=== PATIENT | female | born 1950 | race Caucasian/White ===

== ENCOUNTER 2020-12-20 13:48 | Outpatient (CLI) | payer MEDICARE, SELFPAY ==
--- NOTE | ~2020-12-20 | CT_ITS ---
EXAMINATION: CT knee LT wo con DATE: 12/20/2020 14:23 INDICATION: Left knee osteoarthritis. TECHNIQUE: High resolution computed tomography (CT) of the knee was performed without intravenous con trast. Additional sagittal and coronal reconstructions were performed. Automated exposure control and iterative reconstruction technique were employed. The dose-length product was 668.52 mGy-cm. COMPARISON: Radiograph dated 04/27/2019 FINDINGS: No fracture. Severe joint space narrowing at the medial and lateral compartments of the left knee wit h subarticular cystic changes along portions of the tibial plateau most prominent at the anteromedial aspect of the lateral tibial plateau and along the rim of the medial tibial plateau. A few millimete r of lateral subluxation of the tibial plateau relative to the femoral condyles. Additional mild suba rticular cystic changes along the posterior weightbearing lateral femoral condyle. There is at least mild joint space narrowing in the patellofemoral compartment. Deep chondral ulceration is seen along the patellar apical ridge. Moderate-sized marginal osteophytes are present in all 3 compartments. The re are scattered chondrocalcinosis including along the extruded medial and lateral menisci. Moderate-sized left knee joint effusion with fluid surrounding a couple loose osteochondral bodies in the suprapatellar pouch. Additional loose osteochondral bodies are seen within a moderate-sized Bake r cyst at the medial aspect of the left popliteal fossa. The thickened distal patellar tendon extends towards a concavity with irregular cortical margin along the anteromedial proximal tibia medial to t he expected location of the anterior tibial tuberosity suggesting postoperative change related to ofelia or patellar tendon relocation procedure. Correlate with surgical history. IMPRESSION: 1. Severe medial and lateral compartment predominant tricompartmental osteoarthritis at the left knee . Reviewed, dictated and finalized at location A. IMPRESSION: 1. Severe medial and lateral compartment predominant tricompartmental osteoarth ritis at the left knee.
== END 2020-12-20 13:49 | disposition home or self-care (01) ==
PROVIDERS: PCP Physician Assistant; Visit Provider Orthopaedic Surgery
DX: M17.12 Unilateral primary osteoarthritis, left knee (principal)
CPT/HCPCS: 73700

== ENCOUNTER 2020-12-25 09:49 | Outpatient (CLI) | payer MEDICARE, SELFPAY ==
--- NOTE | 2020-12-25 10:34 | ECG_ITS ---
Measurements Intervals [place] Rate: 65 P: 56 SC: 153 QRS: 26 QRSD: 86 T: 58 QT: 382 QTc: 397 Interpretive Statements SINUS RHYTHM BASELINE ARTIFACT- II, III, AVF NORMAL ECG Electronically Signed On 12-25-2020 11:10:04 CDT by Abrahan Cordero D.O.
[2020-12-25 10:57] LABS: Albumin Level 4.3 g/dL (3.5-5.1); Estimated Glomerular Filt Rate 49
== END 2020-12-25 09:50 | disposition home or self-care (01) ==
PROVIDERS: PCP Physician Assistant; Visit Provider Orthopaedic Surgery
DX: Z01.818 Encounter for other preprocedural examination (principal); M17.12 Unilateral primary osteoarthritis, left knee
CPT/HCPCS: 36415; 82040; 82565; 93005

== ENCOUNTER 2021-03-03 07:41 | Outpatient (CLI) | payer MEDICARE, SELFPAY ==
[2021-03-03 09:01] LABS: Basophils Absolute Auto 0.1 K/mm3 (0.0-0.1); Basophils Percent Auto 1.2 % (0.2-1.2); Eosinophils Absolute Auto 0.2 K/mm3 (0-0.3); Hematocrit 45.5 % (37.0-47.0); Hemoglobin 14.6 g/dL (12.0-15.0); Immature Granulocyte Absolute 0.02 K/mm3 (0.00-0.031); Immature Granulocyte Percent A 0.3 % (0-0.5); Lymphocytes Absolute Auto 1.88 K/mm3 (0.9-3.2); Lymphocytes Percent Auto 29.2 % (18.3-44.2); Mean Corpuscular HGB Conc 32.1 g/dl (32-36); Mean Corpuscular Hemoglobin 28.3 pg (26-34); Mean Corpuscular Volume 88.3 fl (80-100); Mean Platelet Volume 9.4 fl (7.4-10.4); Monocytes Absolute Auto 0.5 K/mm3 (0.1-0.6); Monocytes Percent Auto 7.9 % (2.6-8.5); Neutrophils Absolute Auto 3.8 K/mm3 (1.3-6.7); Neutrophils Percent Auto 58.4 % (45.5-73.1); Platelet Count Result 343 k/mm3 (150-375); Red Blood Count 5.15 M/mm3 (4.2-5.4); Red Cell Distribution Width 12.6 % (11.5-14.5); White Blood Count 6.4 K/mm3 (4.5-10.0)
[2021-03-03 09:08] LABS: Albumin Level 4.7 g/dL (3.5-5.1)
[2021-03-03 09:10] LABS: Anion Gap 9 mmol/L (8-16); Blood Urea Nitrogen 21 mg/dL (7-17); Calcium 10.5 mg/dL (8.4-10.2); Carbon Dioxide 29 mmol/L (22-30); Chloride 102 mmol/L (98-107); Estimated Glomerular Filt Rate 45; Glucose 108 mg/dL (65-105); Sodium 140 mmol/L (137-145)
[2021-03-03 09:12] LABS: Urine Cotinine NEGATIVE
[2021-03-03 09:18] LABS: Hemoglobin A1C 5.8 % (<5.7)
== END 2021-03-03 07:42 | disposition home or self-care (01) ==
PROVIDERS: Anesthesiology; PCP Physician Assistant; Visit Provider Orthopaedic Surgery
DX: M17.12 Unilateral primary osteoarthritis, left knee (principal); Z79.899 Other long term (current) drug therapy; Z01.818 Encounter for other preprocedural examination
CPT/HCPCS: 36415; 80048; 80307; 82040; 83036; 85025; 87081

== ENCOUNTER 2021-03-18 01:02 | Day surgery (SDC) | payer MEDICARE, SELFPAY ==
[2021-03-03 07:48] VITALS: BP 156/88; PULSE 66; RESP 18; TEMP 36.9; O2SAT 99
[2021-03-03 08:21] VITALS: BMI 25.8
[2021-03-18] VITALS (19 sets, daily range): BP systolic 104–159; BP diastolic 64–89; PULSE 63–105; RESP 14–20; TEMP 36–36.9; O2SAT 94–100
--- NOTE | ~2021-03-18 | XR_ITS ---
EXAMINATION: XR knee LT 2V DATE: 03/18/2021 10:50 INDICATION: Total left knee arthroplasty. Postop. TECHNIQUE: 2 views of left knee were obtained. COMPARISON: Left knee radiographs 04/27/2019 FINDINGS: There is a total left knee arthroplasty in near-anatomic alignment with patellar resurfacin g. No fracture. There is gas in the knee joint and soft tissues, consistent with recent surgery. IMPRESSION: 1. Total left knee arthroplasty in near-anatomic alignment. Reviewed, dictated and finalized at location A.
--- NOTE | 2021-03-18 06:30 | WPDANESEPPF ---
Anes - Initial Pre Proc Eval Procedure: Operation Date: 03/18/21 07:30 Proposed Procedures p Left Custom Total Knee Arthroplasty - Eliceo Ferreira MD Date/Time: 03/18/21 06:30 Surgeon: Eliceo Ferreira MD Pre Op Diagnosis: primary OA Left Knee Patient Data Age: 71 Gender: F Height: 1.68 m Weight: 71.6 kg Last Vital Signs Temp 36.9 C 03/03/21 07:48 Pulse 66 03/03/21 07:48 Resp 18 03/03/21 07:48 BP 156/88 H 03/03/21 07:48 Pulse Ox 99 03/03/21 07:48 Allergies Allergy/AdvReac Type Severity Reaction Status Date / Time cephalexin Allergy Unknown Rash Verified 03/14/21 08:10 Home Medications Medication Instructions Recorded Confirmed Type amlodipine 5 mg tablet 5 mg PO QAM 12/02/20 03/03/21 History aspirin 81 mg tablet,delayed 81 mg PO QAM 12/02/20 03/03/21 History release atorvastatin 10 mg tablet 10 mg PO QAM 12/02/20 03/03/21 History cholecalciferol (vitamin D3) 25 25 mcg PO QAM 12/02/20 03/03/21 History mcg (1,000 unit) capsule hydrochlorothiazide 12.5 mg capsule 12.5 mg PO QAM 12/02/20 03/03/21 History losartan 25 mg tablet 25 mg PO QAM 12/02/20 03/03/21 History calcium carbonate-vitamin D3 1 tablet PO QAM 03/03/21 03/03/21 History [Caltrate with Vitamin D3] cyanocobalamin (vitamin B-12) 1,000 mcg PO QAM 03/03/21 03/03/21 History Patient hx anesthesia problems: post op nausea/vomiting (mild - zofran resolved past issues) Family hx anesthesia problems: none PMFSH Past Medical History Medical History (Updated 03/18/21 @ 06:30 by Anibal Fernández DO) Bilateral primary osteoarthritis of knee Hyperlipidemia Hypertension Lumbar radiculitis Primary osteoarthritis of left knee Trochanteric bursitis, left hip Surgical History Surgical History History of x4 - 1974, 1977, 1979, 1982 History of knee surgery (~1970) History of mastectomy (~2001) History of mastectomy (~2006) History of total replacement of left shoulder joint (~10/11/18) Anatomic Family History Family History Other Carcinoma of colon Family history of arthritis Hypertension Social History Social History Smoking status: Never smoker Second hand tobacco smoke exposure: No Alcohol intake: never Substance use: never Substance use type: does not use Living arrangements: with family Spiritual care concerns: No Anes - Eval Final PreProcedure Day of Procedure 03/18/21 06:30 Patient weight: overweight Heart: regular rate and rhythm Lungs: clear to auscultation and normal air movement Airway: Mallampati scale class II Neurological: alert and oriented Last oral intake: >/= 8 hours ASA classification: II Emergent: no Anesthetic plan: proceed Anesthesia type and monitoring: general LMA and standard monitoring Informed Consent: The patient's anesthetic plan and its attendant risks and benefits were discussed with the patient/family/POA. Questions were solicited and answers provided to the satisfaction of the patient/family/POA.
[2021-03-18] MEDS: TRANEXAMIC ACID 1,000MG/ISO100 1,000 MG/100 ML BAG 200 MG IVPB (06:46)
[2021-03-18] MEDS: ACETAMINOPHEN 500 MG TABLET 1000 MG PO (06:48)
[2021-03-18] MEDS: LACTATED RINGERS 1,000 ML 30 ML IV CONT ×2 (06:48→10:35)
[2021-03-18] MEDS: ONDANSETRON INJ 4 MG/2 ML VIAL IV PUSH (07:00)
--- NOTE | 2021-03-18 07:22 | WPDHPUPDATE1 ---
History and Physical Update Update Date/Time: 03/18/21 07:22 History and Physical has been reviewed, including an updated exam of the patient. There are NO changes in the patient's condition. Risks, benefits, and alternatives have been discussed and questions answered. Patient agrees to proceed with procedure.
--- NOTE | 2021-03-18 07:30 | WPDANESPNB ---
Anes - Peripheral Nerve Block Date/Time: 03/18/21 07:30 I have discussed with the patient/family/POA the placement of a peripheral nerve block for post-operative pain management, including associated risks, benefits, complications, and side effects. Alternative methods of post-operative analgesia were detailed. Questions were solicited and answers provided to the satisfaction of the patient/family/POA. Time-Out: A pre-procedural Time-Out was completed immediately before starting the procedure and confirmed: Patient Identification, Site, Procedure, Patient Position and the Availability of Requisite Equipment. Clinical Indications: Acute post-operative pain management requested by the operative surgeon. Nerve Block Insertion Note Anes-nerve block: adductor canal left Patient position: supine Skin prep: chlorhexidine Needle: 22 gauge, stimulating, insulated echogenic needle. Needle length: 80 mm Technique: ultrasound Injectate: bupivacaine 0.5% with epi 5 mcg/ml (30cc - no epi) Observations: tolerated well Complications: none Procedure start time:: 723 Procedure end time:: 726
[2021-03-18] MEDS: SCOPOLAMINE 1.5 MG PATCH TRANSDERM (11:17)
[2021-03-18] MEDS: diphenhydrAMINE HCl INJ 50 MG/ML VIAL 12.5 MG IV PUSH ×2 (11:17→11:42)
--- NOTE | 2021-03-18 11:25 | SUR.PHASEI ---
1115- Patient with n/v and notified Dr. Fernández of episode of emesis. Orders obtained for scopolamine patch 1.5MG and IVP benadryl 12.5MG with max dose of 25MG IVP if needed for persistent n/v.
[2021-03-18] MEDS: HALOPERIDOL LACTATE 5 MG/ML VIAL 1 MG IV PUSH (12:17)
--- NOTE | 2021-03-18 12:21 | SUR.PHASEI ---
1215-Patient complaining nausea has returned at this time and requesting medication prior to transfer to room 244. Obtained orders for 1MG haldol IVP once from Dr. Fernández at this time.
--- NOTE | 2021-03-18 12:49 | ADMGEN ---
This patient, Birgit Burris, was admitted to Medical Room 244-. Patient/family oriented to hospital policies and general routines including ID bracelet, bed and alarms, visiting hours, pain management, procedures, bathroom and other care routines, personal items, smoking policy, room service/diet, and visiting hours. Information on how to activate the Rapid Response Team has been discussed. Patient/Family are encouraged to report perceived risks to care and to ask questions if they do not understand what they are told or what they should do.
[2021-03-18] MEDS: SODIUM CHLORIDE 0.9% IV 1,000 ML 125 ML IV CONT (13:01)
--- NOTE | 2021-03-18 13:11 | PCOTNOTE ---
Per RN, hold OT evaluation at this time due to patient nausea and lethargy due to medication. Will attempt at later time.
--- NOTE | 2021-03-18 16:36 | W.PM.PROC2 ---
Procedure Note - Detailed Date of Procedure 03/18/21 Pre-op Diagnosis primary OA Left Knee Post-op Diagnosis same Procedure Performed Left total knee arthroplasty with Conformis custom implant. Surgeon Eliceo Ferreira MD Medical Donation Professional Tabatha Byrne PA-C Anesthesia general and regional Findings Extensive tricompartmental disease. Significant associated laxity. Remote history of open surgery at the medial joint consistent either with meniscectomy and or MCL surgery. Description of Procedure Preoperative antibiotics were given. A general anesthetic was administered. Subsartorial nerve block was performed in the preoperative area. The limb was prepped and draped in the usual sterile fashion with a well-padded tourniquet high on the thigh. The limb was exsanguinated the tourniquet inflated to 300 mmHg for total of 90 minutes. A longitudinal incision was created over the anteromedial patella and connected with the distal scar near the tibial tubercle. A trivector approach to the knee was performed. The knee was carefully exposed. The patella was resected for resurfacing. Size 32 circular patellar button was selected. The 1st femoral guide was placed on the osteophytes followed by the distal cutting guide. Resection was taken with the oscillating saw. Bone quality was good. The pins for rotation were previously drilled. The AP cutting guide was applied and pinned. The AP and chamfer cuts were taken. The lug holes were drilled. The final guide was placed for the posterior chamfer cuts. The tibia guide was carefully positioned and cartilage was removed although there was very little to no remaining cartilage. Alignment was carefully confirmed. The -2 cutting guide did not contact any bone, therefore the standard 0 cutting guide was used. Extensor balance and limb alignment was confirmed. Although she had a slight tendency for more tightness laterally, no further releases were required. PCL was left in situ. Osteophytes were carefully removed. Trialing was performed. Soft tissue balance was optimal. Rotation was checked and the tibia was prepared for cementation with drilling and punching. Significant medial sclerotic bone was drilled with drill holes to improve cement interdigitation. Bone was carefully prepared for cementation with pulsatile lavage. The components were cemented into place carefully. Trialing was performed once again after the cement was hardened. Patellar tracking was excellent. The knee lacked full extension with the 7 mm insert. With the 6 mm insert full extension and excellent rollback were confirmed. The local anesthetic cocktail was injected earlier in the procedure. A Betadine lavage soak was performed prior to final implantation of the polyethylene inserts. the wound was closed in layers with 1. Vicryl suture, running 1. Quill suture, 2-0 Quill suture, 3-0 Quill suture. Steri-Strips applied and a sterile compression dressing. The patient was extubated and brought to the recovery room in stable condition. Implants Conformis iTotal CR. 6mm medial and A lateral poly insert. 32mm circular patella. Estimated Blood Loss -50.0 Tourniquet Time 90 Drains No Pathology none sent Complications No immediate complications Condition stable Disposition PACU
[2021-03-18] MEDS: ASPIRIN 81 MG ENTERIC TABLET PO (16:53)
[2021-03-18] MEDS: MELOXICAM 7.5 MG TABLET PO (16:53)
[2021-03-19 02:12] VITALS: BP 129/74; PULSE 73; RESP 16; TEMP 36.3; O2SAT 98
[2021-03-19 05:19] VITALS: BP 127/65; PULSE 61; RESP 18; TEMP 36.1; O2SAT 99
[2021-03-19 05:41] LABS: Basophils Absolute Auto 0.1 K/mm3 (0.0-0.1); Basophils Percent Auto 0.3 % (0.2-1.2); Eosinophils Percent Auto 0.1 % (0-4.4); Hematocrit 38.4 % (37.0-47.0); Hemoglobin 11.9 g/dL (12.0-15.0); Immature Granulocyte Absolute 0.06 K/mm3 (0.00-0.031); Immature Granulocyte Percent A 0.4 % (0-0.5); Lymphocytes Absolute Auto 1.95 K/mm3 (0.9-3.2); Lymphocytes Percent Auto 13.5 % (18.3-44.2); Mean Corpuscular Hemoglobin 27.7 pg (26-34); Mean Corpuscular Volume 89.5 fl (80-100); Mean Platelet Volume 9.6 fl (7.4-10.4); Monocytes Absolute Auto 1.4 K/mm3 (0.1-0.6); Monocytes Percent Auto 9.5 % (2.6-8.5); Neutrophils Percent Auto 76.2 % (45.5-73.1); Platelet Count Result 267 k/mm3 (150-375); Red Blood Count 4.29 M/mm3 (4.2-5.4); Red Cell Distribution Width 12.6 % (11.5-14.5); White Blood Count 14.5 K/mm3 (4.5-10.0)
[2021-03-19 05:51] LABS: Anion Gap 8 mmol/L (8-16); Blood Urea Nitrogen 13 mg/dL (7-17); Carbon Dioxide 24 mmol/L (22-30); Chloride 102 mmol/L (98-107); Estimated CRCL calculation 40 ml/min; Estimated Glomerular Filt Rate 49; Glucose 112 mg/dL (65-105); Potassium 3.6 mmol/L (3.4-5.0); Sodium 134 mmol/L (137-145)
--- NOTE | 2021-03-19 07:43 | WPDANESPN ---
Anes - Prog Note Post-Op Date/Time: 03/19/21 07:43 Cardiovascular status: normal Respiratory status: normal Airway patency: baseline Mental status: baseline Post-Op hydration status: normal Vital Signs: Last Vital Signs Temp 36.1 C L 03/19/21 05:19 Pulse 61 03/19/21 05:19 Resp 18 03/19/21 05:19 BP 127/65 03/19/21 05:19 Pulse Ox 99 03/19/21 05:19 Pain Score (VAS): 210 I/O: Intake & Output 03/18/21 03/18/21 03/19/21 15:59 23:59 07:59 Intake Total 396 328 1111 Output Total 600 1100 Balance 950 -250 500 Laboratory Tests 03/19/21 05:09 03/19/21 05:09 03/18/21 03/19/21 03/19/21 06:43 05:09 05:09 WBC 14.5 H RBC 4.29 Hgb 11.9 L Hct 38.4 MCV 89.5 MCH 27.7 MCHC 31.0 L RDW 12.6 Plt Count 267 MPV 9.6 Immature Gran % (Auto) 0.4 Neut % (Auto) 76.2 H Lymph % (Auto) 13.5 L [place] % (Auto) 9.5 H Eos % (Auto) 0.1 Baso % (Auto) 0.3 Lymph # (Auto) 1.95 [place] # (Auto) 1.4 H Eos # (Auto) 0.0 Baso # (Auto) 0.1 Abs Immat Gran (auto) 0.06 H Absolute Neuts (auto) 11.0 H Absolute Nucleated RBC 0.0 Nucleated RBC % 0.0 Sodium 134 L Potassium 3.6 Chloride 102 Carbon Dioxide 24 Anion Gap 8 BUN 13 D Creatinine 1.10 H Estim Creat Clear Calc 40 Estimated GFR 49 L Glucose 112 H Calcium 9.0 Blood Type O Positive Antibody Screen Negative Post-procedural complaints: none Patient Feedback: Patient satisfied with anesthetic care.
--- NOTE | 2021-03-19 08:10 | PM.DS ---
DS: Admitting Diagnosis Admitting Diagnosis Admitting Diagnosis: OA knee Left DS: Discharge Diagnosis Discharge Diagnosis (1) Status post total left knee replacement: Code(s): Z96.652 - Presence of left artificial knee joint Status: Acute Assessment and Plan: Postop day 1: Left total knee arthroplasty. Patient tolerated procedure well. No complications. Pain manageable with pain medication. No numbness or tingling. We had a lengthy discussion regarding postoperative wound care, limitations, expectations, and exercises. Patient shows good understanding. He has had initial physical therapy and is tolerating it well. DVT prophylaxis: 81 mg baby aspirin b.i.d. for 14 days. Pain medication: Percocet. Antibiotic: Clindamycin for 2 weeks. Patient has followup appointment with Dr. Ferreira in 3 weeks. DS: Summary Hospital Course Reason for hospitalization: Total knee arthroplasty Hospital Course: Patient tolerated procedure well. Has had initial PT/OT. Status at Discharge Functional status at discharge: uses cane/walker Overall status at discharge: patient is progressing back to baseline Time Spent with Patient Time attestation: Total time spent providing and/or coordinating discharge services: Exam Narrative: Exam Narrative: Normal weight 71 y/o female. Resting comfortably in bed. Alert and oriented x3. No acute distress. Wearing compression socks bilaterally. Dressing dry and intact with no drainage. Moderate swelling. No ecchymosis. No erythema. No hematoma. Range of motion limited due to pain. Active ROM 5-80 degrees. Calf nontender. Neurologic status intact. No varicosities. Distal pulses palpable. DS: Data Data Completed and Pending Labs on day of discharge: Labs from last 24 hours 03/19/21 03/19/21 05:09 05:09 WBC 14.5 H RBC 4.29 Hgb 11.9 L Hct 38.4 MCV 89.5 MCH 27.7 MCHC 31.0 L RDW 12.6 Plt Count 267 MPV 9.6 Immature Gran % (Auto) 0.4 Neut % (Auto) 76.2 H Lymph % (Auto) 13.5 L [place] % (Auto) 9.5 H Eos % (Auto) 0.1 Baso % (Auto) 0.3 Lymph # (Auto) 1.95 [place] # (Auto) 1.4 H Eos # (Auto) 0.0 Baso # (Auto) 0.1 Abs Immat Gran (auto) 0.06 H Absolute Neuts (auto) 11.0 H Absolute Nucleated RBC 0.0 Nucleated RBC % 0.0 Sodium 134 L Potassium 3.6 Chloride 102 Carbon Dioxide 24 Anion Gap 8 BUN 13 D Creatinine 1.10 H Estim Creat Clear Calc 40 Estimated GFR 49 L Glucose 112 H Calcium 9.0 Discharge Plan Discharge Patient Disposition: Home, Self-Care Discharge Instructions: See instruction sheet Stand Alone Forms: General Discharge Instructions Follow-up/Referrals: Tabatha Byrne PA [Physician Law Secretary] - Discharge Medications: New oxycodone-acetaminophen 5-325 mg tablet 1 - 2 tablet PO Q4-6H MDD 6 PRN (Reason: pain) Qty: 30 RF: 0 aspirin 81 mg tablet,delayed release (DR/EC) 81 mg PO BID 14 Days Qty: 28 RF: 0 clindamycin HCl 300 mg capsule 300 mg PO TID 14 Days Qty: 42 RF: 0 Continued amlodipine 5 mg tablet 5 mg PO QAM RF: 0 atorvastatin 10 mg tablet 10 mg PO QAM RF: 0 hydrochlorothiazide 12.5 mg capsule 12.5 mg PO QAM RF: 0 losartan 25 mg tablet 25 mg PO QAM RF: 0 aspirin 81 mg tablet,delayed release (DR/EC) 81 mg PO QAM RF: 0 cholecalciferol (vitamin D3) 25 mcg (1,000 unit) capsule 25 mcg PO QAM RF: 0 cyanocobalamin (vitamin B-12) 1,000 mcg Tablet 1,000 mcg PO QAM RF: 0 calcium carbonate-vitamin D3 [Caltrate with Vitamin D3] 600 mg(1,500mg) -800 unit Tablet 1 tablet PO QAM RF: 0 Other Ambulatory Orders: SARS-CoV-2 RNA, Qual RT-PCR (Routine) Timeframe: 2 Months Location: Determined by Patient Ordered By: Eliceo Ferreira
[2021-03-19] MEDS: MELOXICAM 7.5 MG TABLET PO (08:52)
[2021-03-19] MEDS: ASPIRIN 81 MG ENTERIC TABLET PO (08:52)
[2021-03-19] MEDS: amLODIPine BESYLATE 5 MG TABLET PO (08:52)
[2021-03-19] MEDS: CHOLECALCIFEROL 1,000 UNITS TABLET 1000 UNITS PO (08:52)
[2021-03-19] MEDS: ATORVASTATIN 10 MG TABLET PO (08:52)
[2021-03-19] MEDS: CYANOCOBALAMIN 1,000 MCG TABLET 1000 MCG PO (08:53)
[2021-03-19] MEDS: hydroCHLOROthiazide 12.5 MG CAPSULE PO (08:53)
[2021-03-19] MEDS: LOSARTAN POTASSIUM 25 MG TABLET PO (08:53)
[2021-03-19] MEDS: DOCUSATE SODIUM 100 MG CAPSULE PO (08:53)
== END 2021-03-19 10:15 | disposition home or self-care (01) ==
LOC: ANHSURGERY 05:48 → ANH2MED 12:32
PROVIDERS: PCP Physician Assistant; Visit Provider Orthopaedic Surgery
PROC: (CPT 27447; principal; 2021-03-18 07:30)
DX: M17.12 Unilateral primary osteoarthritis, left knee (principal); G89.18 Other acute postprocedural pain; I10 Essential (primary) hypertension; E78.5 Hyperlipidemia, unspecified; Z79.82 Long term (current) use of aspirin
CPT/HCPCS: 27447; 64447; 36415; 73560; 80048; 85025; 86850; 86900; 86901; 97110; 97116; 97161; 97165; 97530; A9270; C1713; J0131; J0171; J1200; J1630; J1885; J2250; J2270; J2405; J2795; J3010; J3370; J7030; J7120

== ENCOUNTER 2023-10-13 07:49 | Outpatient (CLI) | payer MEDICARE, SELFPAY ==
--- NOTE | ~2023-10-13 | XR_ITS ---
XR hip BI 2V w AP pelvis DATE: 10/13/2023 08:23 INDICATION: Chronic bilateral hip pain. No injury. TECHNIQUE: AP pelvis. AP and lateral views of each hip. COMPARISON: 04/27/2019 left hip FINDINGS: There is levoscoliosis and multilevel degenerative disc disease of the lumbar spine. Mild osteitis pubis. Normal alignment at the pubic sinuses and sacroiliac joints. There is mild left hip osteoarthritis and chondrocalcinosis. No fracture or dislocation, avascular ne crosis or bone destruction of the left hip is detected. There is severe joint space narrowing and joint space virtually obliterated superiorly, with spurring of the femoral head and acetabulum and prominent patchy sclerotic and cystic changes of the acetabul um and femoral head. New fracture or dislocation of the right hip is detected. Avascular necrosis of right femoral head is not excluded. IMPRESSION: Very severe right hip osteoarthritis, dramatically advanced compared to 04/27/2019 Mild left hip osteoarthritis and left hip chondrocalcinosis Mild osteitis pubis Scoliosis and multilevel degenerative disc disease of lumbar spine Reviewed, dictated and finalized at location B. ERCIAL PORTFOLIO MANAGER IMPRESSION: Very severe right hip osteoarthritis, dramatically advanced compare d to 04/27/2019 Mild left hip osteoarthritis and left hip chondrocalcinosis Mild osteitis pubis Scoliosis and multilevel degenerative disc disease of lumbar spine
== END 2023-10-13 07:50 | disposition home or self-care (01) ==
PROVIDERS: Visit Provider Orthopaedic Surgery
DX: M16.0 Bilateral primary osteoarthritis of hip (principal); M41.9 Scoliosis, unspecified; M51.36 Other intervertebral disc degeneration, lumbar region
CPT/HCPCS: 73521

== ENCOUNTER 2023-11-01 08:18 | Outpatient (CLI) | payer MEDICARE, SELFPAY ==
[2023-11-01 09:10] LABS: Hematocrit 41.3 % (37.0-47.0); Hemoglobin 12.6 g/dL (12.0-15.0)
[2023-11-01 09:24] LABS: Estimated Glomerular Filt Rate 40; Glucose 99 mg/dL (65-110)
== END 2023-11-01 08:19 | disposition home or self-care (01) ==
LOC: ANHLAB 08:22
PROVIDERS: Visit Provider Orthopaedic Surgery
DX: M16.11 Unilateral primary osteoarthritis, right hip (principal); R53.81 Other malaise
CPT/HCPCS: 36415; 82040; 82565; 82947; 85014; 85018

== ENCOUNTER 2023-12-02 09:18 | Outpatient (CLI) | payer MEDICARE, SELFPAY ==
--- NOTE | ~2023-12-02 | US_ITS ---
Renal-Bladder ultrasound Clinical History: Abnormal renal function studies Technique: Real-time sonographic imaging of the kidneys and urinary bladder was performed. Findings: The right kidney measures 8.9 cm in length and the left kidney measures 9.7 cm. There is no hydronephrosis or renal calculus identified. Renal cortical echogenicity is mildly increased. No carlie al mass lesion is identified. The urinary bladder is moderately distended at the time of this exam. No intraluminal echoes are iden tified. No abnormal wall thickening is seen. Impression: Echogenic kidneys suggest chronic medical renal disease. No hydronephrosis. Reviewed, dictated and finalized at location . Impression: Echogenic kidneys suggest chronic medical renal disease. No hydronephrosis.
== END 2023-12-02 09:19 ==
LOC: MICIMG 09:20
PROVIDERS: PCP Internal Medicine Nephrology; Visit Provider Internal Medicine Nephrology
DX: R94.4 Abnormal results of kidney function studies (principal)
CPT/HCPCS: 76775

== ENCOUNTER 2023-12-02 09:43 | Outpatient (CLI) | payer MEDICARE, SELFPAY ==
[2023-12-02 10:15] LABS: Hematocrit 40.9 % (37.0-47.0); Hemoglobin 12.7 g/dL (12.0-15.0); Mean Corpuscular HGB Conc 31.1 g/dl (32-36); Mean Corpuscular Hemoglobin 25.8 pg (26-34); Mean Corpuscular Volume 83.1 fl (80-100); Mean Platelet Volume 10.3 fl (7.4-10.4); Platelet Count Result 314 k/mm3 (150-375); Red Blood Count 4.92 M/mm3 (4.2-5.4); Red Cell Distribution Width 14.5 % (11.5-14.5); White Blood Count 6.4 K/mm3 (4.5-10.0)
[2023-12-02 10:21] LABS: Creatinine Urine 12.5 mg/dL; Total Protein Urine Random 14 mg/dL; Ur Ttl Prot Creatinine Ratio 1.12 mg/mg (0-0.20)
[2023-12-02 10:41] LABS: Erythrocyte Sedimentation Rate 17 mm/hr (0-20)
[2023-12-02 10:45] LABS: Appearance Urine Clear (Clear); Bacteria Urine None Seen /hpf; Bilirubin Urine Negative (Negative); Blood Urine Negative (Negative); Color Urine Yellow (Yellow); Glucose Urine UA Negative (Negative); Ketones Urine Negative (Negative); Leukocyte Esterase Ur 1+ LEU/UL (Negative); Need Manual Microscopic Reviewed; Nitrate Urine Negative (Negative); Non Pathogenic Casts 0-2; Protein Urine Negative (Negative); RBC Urine 0-2 /hpf (0-2); Squamous Epithelial Cell Urine None Seen /hpf (Few); Urobilinogen Urine 0.2 mg/dL (<2.0); WBC Urine 0-5 /hpf (0-3)
[2023-12-02 10:46] LABS: Add Urine Microscopic? YES; Specific Grav Ur 1.004 (1.001-1.035)
[2023-12-02 16:18] LABS: Albumin Level 4.3 g/dL (3.5-5.1); Anion Gap 7 mmol/L (8-16); Blood Urea Nitrogen 14 mg/dL (7-17); Calcium 10.3 mg/dL (8.4-10.2); Carbon Dioxide 25 mmol/L (22-30); Chloride 103 mmol/L (98-107); Estimated Glomerular Filt Rate > 60; Glucose 98 mg/dL (65-110); Potassium 4.2 mmol/L (3.4-5.0); Sodium 135 mmol/L (137-145)
[2023-12-03 11:17] LABS: Creatine Kinase 342 U/L (30-135)
[2023-12-03 13:16] LABS: Complement C3 123 mg/dL (88-165)
[2023-12-04 21:02] LABS: Kappa\\Lambda Light Chains 1.19 (0.26-1.65); Lambda Light Chain 20.2 mg/L (5.7-26.3)
[2023-12-07 13:52] LABS: Complement Total CH50 >60 U/mL (31-60)
== END 2023-12-02 09:44 | disposition home or self-care (01) ==
LOC: ANHLAB 09:50
PROVIDERS: PCP Internal Medicine Nephrology; Visit Provider Internal Medicine Nephrology
DX: R94.4 Abnormal results of kidney function studies (principal); Z96.652 Presence of left artificial knee joint
CPT/HCPCS: 36415; 80069; 82550; 82570; 83883; 84156; 85027; 85652; 86038; 86039; 86160; 86162; 86334

== ENCOUNTER 2023-12-04 08:51 | Outpatient (CLI) | payer MEDICARE, SELFPAY ==
[2023-12-04 12:03] LABS: Total Volume 24 Hour Urine 1400 ml; Urea Nitrogen 24 Hour Urine 4.9 G/DAY (12-20)
[2023-12-09 08:22] LABS: Albumin 43 %; Creat 24 Hr 0.75 g/24 h (0.50-2.15); Pro/Creat Ratio 131 mg/g creat (<150); Pro/Creat Ratio mg/mg 0.131 (<0.150); Protein,total, 24 Hr Ur 98 mg/24 h (<150)
== END 2023-12-04 08:52 | disposition home or self-care (01) ==
PROVIDERS: PCP Internal Medicine Nephrology; Visit Provider Internal Medicine Nephrology
DX: R94.4 Abnormal results of kidney function studies (principal)
CPT/HCPCS: 81050; 84540; 86335

== ENCOUNTER 2023-12-14 13:42 | Outpatient (CLI) | payer MEDICARE, SELFPAY ==
--- NOTE | 2023-12-14 14:59 | ECG_ITS ---
Measurements Intervals [place] Rate: 60 P: 86 [place]: 165 QRS: 0 QRSD: 85 T: 39 QT: 411 QTc: 411 Interpretive Statements ELECTRONIC ATRIAL PACEMAKER COMPARED TO ECG 12/25/2020 10:41:11 PACED RHYTHM NOW PRESENT Electronically Signed On 12-15-2023 12:18:13 CDT by Barb Merchant M.D.
[2023-12-14 16:13] LABS: Prothrombin Time 13.2 Seconds (11.1-14.7)
[2023-12-14 16:14] LABS: Urine Cotinine NEGATIVE
[2023-12-14 17:10] LABS: MRSA (PCR) NOT DETECTED (NOT DETECTE)
[2023-12-14 17:23] LABS: Hemoglobin A1C 5.5 % (<5.7)
== END 2023-12-14 13:43 | disposition home or self-care (01) ==
LOC: ANHSURGERY 13:47
PROVIDERS: Anesthesiology; Visit Provider Orthopaedic Surgery
DX: M16.11 Unilateral primary osteoarthritis, right hip (principal); N18.30 Chronic kidney disease, stage 3 unspecified; Z01.818 Encounter for other preprocedural examination; Z95.0 Presence of cardiac pacemaker
CPT/HCPCS: 36415; 80307; 83036; 85610; 85730; 87641; 93005

== ENCOUNTER 2023-12-29 14:01 | Inpatient (IN) | payer MEDICARE, SELFPAY ==
[2023-12-14 14:05] VITALS: BP 163/88; PULSE 59; RESP 16; TEMP 37.4; O2SAT 100; BMI 23.2
--- NOTE | 2023-12-14 14:22 | PC.NURSE ---
Report to the Outpatient Waiting Room, entrance under the green pavilion located off [facility], at time __11:00AM on date ___12/28/23____. Planned Procedure Time: __1:00PM . Time changes happen often and if your time is changed the preop area will call you the afternoon before. - You and your visitor will be asked to self-screen and do not enter if you have any COVID symptoms. - A mask is optional within the hospital at this time. Patients may have clear liquids (water, carbonated beverages, clear teas, apple juice) until 3 hours prior to surgery with a maximum of 20 ounces. - No food from midnight until time of surgery. Take the following medications with a SIP of water the morning of surgery: __METOPROLOL DO NOT STOP ANY OF YOUR OTHER PRESCRIPTION MEDICATIONS PRIOR TO SURGERY ?EXCEPT THE FOLLOWING Medications to discontinue per physician ____HOLD ASPIRIN 7 DAYS PRE-OP PER DR HENDERSON- LAST DOSE 12/20/23. HOLD ALL VITAMINS/SUPPLEMENTS 3 DAYS PRE-OP PER ANESTHESIA- LAST DOSE 12/24/23 Please no make-up, nail norwegian, hairspray, perfume, deodorant, or body powder the day of surgery. No jewelry (including any body piercings) or valuables the day of surgery, leave them at home. Please take a shower or bath the night before, or the morning of, surgery with an antibacterial soap. Wear comfortable, loose fitting clothing. - Jewelry must be removed prior to entering the operating room. Rings and piercings that are not removed may be cut off. - The hospital will not accept responsibility for valuables. - Please leave all valuables, including medications, at home the day of surgery. If you are going home after surgery, a licensed commercial truck driver must drive you home. - NO public transportation without another adult if you receive anesthesia. - We recommend that an adult stay with you for 24 hours following discharge. - We also recommend that you do not drive, make important decision, drink alcoholic beverages, or take any drugs that were not prescribed by your health care provider for at least 24 hours after your discharge time. Follow any additional instructions given to you from your surgeon. If you or anyone in your household have experienced Covid symptoms in the past week, please notify your surgeon or the nurse liaison at the phone number below for possible testing. Telephone instructions given to ____PATIENT and asked if any additional questions and then verbalized understanding. Patient advised to call surgeon office or pre surgery nurse liaison [phone] if any additional questions.
[2023-12-28] VITALS (14 sets, daily range): BP systolic 122–183; BP diastolic 54–99; PULSE 59–78; RESP 14–20; TEMP 36.2–37.2; O2SAT 93–100
[2023-12-28] MEDS: ACETAMINOPHEN 500 MG TABLET 1000 MG PO ×2 (06:20→21:27)
[2023-12-28] MEDS: LACTATED RINGERS 1,000 ML 30 ML IV CONT ×2 (06:34→09:15)
--- NOTE | 2023-12-28 06:43 | WPDANESEPPF ---
Anes - Initial Pre Proc Eval Procedure: Operation Date: 12/28/23 07:30 Proposed Procedures p Right Total Hip Arthroplasty - Eliceo Ferreira MD Date/Time: 12/28/23 06:43 Surgeon: Eliceo Ferreira MD Pre Op Diagnosis: primary oa right Patient Data Age: 73 Gender: F Height: 1.7 m Weight: 67.3 kg Last Vital Signs Temp 99.3 F 12/14/23 14:05 Pulse 59 L 12/14/23 14:05 Resp 16 12/14/23 14:05 BP 163/88 H 12/14/23 14:05 Pulse Ox 100 12/14/23 14:05 O2 Del Method Room Air 12/14/23 14:05 Allergies Allergy/AdvReac Type Severity Reaction Status Date / Time cephalexin Allergy Unknown Rash Verified 12/28/23 06:09 Home Medications Medication Instructions Recorded Confirmed Type aspirin 81 mg tablet,delayed 81 mg PO QAM 30 days #30 tabs 08/08/23 12/28/23 Rx release atorvastatin 10 mg tablet 10 mg PO DAILY #30 tabs 08/08/23 12/28/23 Rx calcium carbonate 500 mg-vitamin 1 tablet PO DAILY #30 tabs 08/08/23 12/28/23 Rx D3 5 mcg (200 unit) tablet (Os-Jeffery 500 + D3) acetaminophen 500 mg capsule 1,000 mg PO Q6H PRN Pain 12/14/23 12/28/23 History losartan 50 mg tablet 100 mg PO QAM 12/14/23 12/28/23 History metoprolol succinate 100 mg 100 mg PO QAM 12/14/23 12/28/23 History tablet,extended release 24 hr pantoprazole 40 mg tablet,delayed 40 mg PO DAILY PRN Indigestion 12/14/23 12/28/23 History release aspirin 81 mg tablet,delayed 81 mg PO BID 14 days #28 tabs 12/28/23 Rx release oxycodone-acetaminophen 5 mg-325 1 - 2 tablet PO Q4-6H PRN pain #30 12/28/23 Rx mg tablet tabs Patient hx anesthesia problems: none Family hx anesthesia problems: none Results Review: All pre-operative results and documents have been reviewed as part of the pre-operative evaluation. REPLACED BY [facility] Past Medical History Medical History Bilateral primary osteoarthritis of knee Hyperlipidemia Hypertension Lumbar radiculitis Primary osteoarthritis of left knee Trochanteric bursitis, left hip Surgical History Surgical History History of x4 - 1974, 1977, 1979, 1982 History of knee surgery (~1970) History of mastectomy (~2001) History of mastectomy (~2006) History of total replacement of left shoulder joint (~10/11/18) Anatomic Family History Family History Other Carcinoma of colon Family history of arthritis Hypertension Social History Social History Smoking status: Never smoker Second hand tobacco smoke exposure: Yes Alcohol intake: never Substance use: never Substance use type: does not use Do You Feel Safe in your Home?: Yes Lack of Transportation: No Lack of Food: Never True Current Housing: I Have Housing Concerned About Future Housing: No Difficulty Paying Gas/Electric Bills: No Difficulty Paying for Meds: No Currently Unemployed: No Education: High School Diploma/GED Difficulty w/ Childcare or Family Care: No Living arrangements: with family Additional living arrangements comments: [facility] Gender identity (if verbalized by the patient): Female Spiritual care concerns: No Anes - Eval Final PreProcedure Day of Procedure 12/28/23 06:43 Patient weight: normal Heart: regular rate and rhythm Lungs: clear to auscultation Airway: Mallampati scale Neurological: alert and oriented Last oral intake: >/= 8 hours ASA classification: III Emergent: no Anesthetic plan: proceed Anesthesia type and monitoring: general and standard monitoring Results Review: All pre-operative results and documents have been reviewed as part of the pre-operative evaluation. Notes reviewed, pacemaker/defib in place. Informed Consent: The patient's anesthetic plan and its attendant risks and benefits were discussed with
[2023-12-28] MEDS: TRANEXAMIC ACID 1,000MG/ISO100 1,000 MG/100 ML BAG 200 MG IVPB (06:58)
--- NOTE | 2023-12-28 07:04 | WPDHPUPDATE1 ---
History and Physical Update Update Date/Time: 12/28/23 07:04 History and Physical has been reviewed, including an updated exam of the patient. There are NO changes in the patient's condition. Risks, benefits, and alternatives have been discussed and questions answered. Patient agrees to proceed with procedure.
[2023-12-28] MEDS: CLINDAMYCIN 900 MG/D5W 50 ML 900 MG/50 ML PIGGYBACK 50 MG IVPB (07:40)
[2023-12-28] MEDS: SODIUM CHLORIDE 0.9% IV 37.7 ML, MORPHINE SULFATE INJ (*CRX) 2 MG, ROPivacaine HCL 1% 2... INFILTRATE (08:10)
--- NOTE | 2023-12-28 09:03 | W.PM.PROC2 ---
Procedure Note - Detailed Date of Procedure 12/28/23 Pre-op Diagnosis Osteoarthritis right hip with avascular necrosis. Post-op Diagnosis Same Procedure Performed Right Total Hip Arthroplasty Surgeon Eliceo Ferreira MD Registered Nurse Bone Marrow Transplant Tabatha Lazar PA-C Anesthesia General Description of Procedure The patient was given preoperative antibiotics. A general anesthetic was administered. The patient was carefully placed in the lateral decubitus position on the PEG board. The shoulders and hips were carefully positioned for component and leg length positioning reference. The hip was prepped and draped in the usual sterile fashion. A longitudinal incision was created over the posterior aspect of the greater trochanter. Careful dissection was brought down through the deep fascia with electrocautery. A minimally invasive optimized posterior approach to the hip was performed. The short external rotators and capsule were taken down in an L-shaped capsulotomy. The tissue was tagged for later repair using number 2 high strength suture. The femoral neck was measured and taken in situ. The femoral head was removed. The acetabulum was carefully exposed. The inferior capsule was released. The labrum was resected. The acetabulum was sequentially reamed to the intended cup size. The cup was impacted into position with excellent press-fit. Typical anatomic landmarks, including the bony contact points as well as the inferior transverse acetabular ligament were used to confirm cup positioning with preoperative templating. Attention was turned to the femur, which was carefully exposed. The hip was reamed and then broached sequentially. Excellent press-fit was obtained with the broach. The hip was trialed. Measurements were utilized, including the lesser trochanter as well as the center of the femoral head and the tip of the trochanter, and excellent assessment of the offset and leg lengths were confirmed. The real component was impacted into position. Trialing confirmed appropriate leg length and offset with soft tissue balancing as well apparent feel of the leg, both at the knee and the heel. Soft tissues were assessed using the the iliotibial band. Reduction of the posterior capsule and external rotators were also used as a secondary assessment. The hip was copiously irrigated with pulsatile lavage periodically throughout the procedure. The real components were then assembled and reduced. The hip was stable throughout typical maneuvers, including extension, external rotation to 70 degrees, the position of sleep as well as flexion to 90 degrees with internal rotation past 35 degrees. The shake test confirmed stability without impingement. Osteophytes were removed as necessary. The short external rotators and capsule were repaired back to the posterior trochanter through drill holes. The deep fascia was repaired with running number 2 barbed suture, followed by 2-0 Stratafix suture and 3-0 Stratafix suture in the dermis. Steri-Strips were placed on the skin, followed by a sterile occlusive dressing. There were no complications. Meticulous hemostasis was maintained with the AquaMantys device. The patient was brought to the recovery room in stable condition. There were no complications. Physician assistant media buyer, Tabatha Lazar PA-C, required for surgery; including patient positioning, draping, tissue retraction, maintaining instrument position, hip dislocation/ relocation, wound closure, and dressing placement. Implants The Accolade II hip stem, 127 degree size 5 , was utilized with excellent press-fit. The 52 mm Trident II acetabular component was impacted with excellent press-fit stability. 10 degree elevated polyethylene liner the +2.4, 36 mm Biolox ceramic femoral head was utilized. Estimated Blood Loss 300 Drains No Packing No Pathology None sent Complications No immediate complications Condition Stable Disposition PACU AM Billing Surgery [facility]
[2023-12-28 09:38] LABS: Glucose Point of Care 141 mg/dl (65-105)
[2023-12-28] MEDS: ONDANSETRON INJ 4 MG/2 ML VIAL IV PUSH (09:50)
[2023-12-28] MEDS: fentaNYL CITRATE INJ (*CRX) 100 MCG/2 ML VIAL 25 MCG IV PUSH (09:54)
--- NOTE | 2023-12-28 10:09 | SUR.PHASEI ---
DR. ZARAGOZA, ANESTHESIOLOGIST, CAME TO SEE PATIENT. HE CONFIRMED WITH PAC[employer]ER [employer] THAT NO INTERROGATION IS NEEDED.
[2023-12-28] MEDS: VANCOMYCIN 1,000 MG/NS 250 ML 1,000 MG/250 ML BAG 250 MG IVPB ×2 (12:48→21:27)
--- NOTE | 2023-12-28 13:40 | PC.NURSE ---
This patient, Birgit Burris, was admitted to 3 [facility] Surg Room 331-02. Patient/family oriented to hospital policies and general routines including ID bracelet, bed and alarms, visiting hours, pain management, procedures, bathroom and other care routines, personal items, smoking policy, room service/diet, and visiting hours. Information on how to activate the Rapid Response Team has been discussed. Patient/Family are encouraged to report perceived risks to care and to ask questions if they do not understand what they are told or what they should do.
[2023-12-28] MEDS: ASPIRIN 81 MG ENTERIC TABLET PO (16:57)
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
[2023-12-29] VITALS (7 sets, daily range): BP systolic 119–162; BP diastolic 68–78; PULSE 58–80; RESP 16–20; TEMP 36.6–37.2; O2SAT 96–100
--- NOTE | ~2023-12-29 | XR_ITS ---
Right Hip Technique: Portable AP and crosstable lateral views Clinical History: Status post hip arthroplasty Findings: Patient is status post right hip arthroplasty. Orthopedic hardware alignment appears anatom ic. No hardware complication is evident. Subcutaneous emphysema and swelling is likely postoperative in nature. No acute osseous fracture is seen. Impression: Status post total right hip arthroplasty, without evidence of hardware complication. Reviewed, dictated and finalized at location . Impression: Status post total right hip arthroplasty, without evidence of hardware complica tion.
[2023-12-29] MEDS: ACETAMINOPHEN 500 MG TABLET 1000 MG PO ×2 (05:32→11:54)
[2023-12-29 06:33] LABS: Basophils Percent Auto 0.3 % (0.2-1.2); Eosinophils Percent Auto 0.1 % (0-4.4); Hematocrit 36.1 % (37.0-47.0); Hemoglobin 11.4 g/dL (12.0-15.0); Immature Granulocyte Absolute 0.04 K/mm3 (0.00-0.031); Immature Granulocyte Percent A 0.3 % (0-0.5); Lymphocytes Absolute Auto 1.71 K/mm3 (0.9-3.2); Lymphocytes Percent Auto 13.9 % (18.3-44.2); Mean Corpuscular HGB Conc 31.6 g/dl (32-36); Mean Corpuscular Hemoglobin 26.3 pg (26-34); Mean Corpuscular Volume 83.4 fl (80-100); Mean Platelet Volume 9.7 fl (7.4-10.4); Monocytes Absolute Auto 1.3 K/mm3 (0.1-0.6); Monocytes Percent Auto 10.4 % (2.6-8.5); Neutrophils Absolute Auto 9.2 K/mm3 (1.3-6.7); Platelet Count Result 296 k/mm3 (150-375); Red Blood Count 4.33 M/mm3 (4.2-5.4); Red Cell Distribution Width 15.2 % (11.5-14.5); White Blood Count 12.3 K/mm3 (4.5-10.0)
[2023-12-29 06:50] LABS: Anion Gap 5 mmol/L (4-12); Blood Urea Nitrogen 19 mg/dL (7-17); Calcium 9.6 mg/dL (8.4-10.2); Carbon Dioxide 26 mmol/L (22-30); Chloride 105 mmol/L (98-107); Estimated CRCL calculation 41 ml/min; Estimated Glomerular Filt Rate 49; Glucose 111 mg/dL (65-110); Sodium 136 mmol/L (137-145)
--- NOTE | 2023-12-29 07:26 | WPDANESPN ---
Anes - Prog Note Post-Op Date/Time: 12/29/23 07:26 Cardiovascular status: normal Respiratory status: normal Airway patency: baseline Mental status: baseline Post-Op hydration status: normal Vital Signs: Last Vital Signs Temp 97.8 F 12/29/23 04:38 Pulse 68 12/29/23 04:38 Resp 18 12/29/23 04:38 BP 148/75 H 12/29/23 04:38 Pulse Ox 98 12/29/23 04:38 O2 Del Method Room Air 12/28/23 13:49 O2 Flow Rate 8 12/28/23 09:30 Pain Score (VAS): 0/10 I/O: Intake & Output 12/28/23 12/28/23 12/29/23 15:59 23:59 07:59 Intake Total 1850 670 500 Balance 1850 670 500 Laboratory Tests 12/29/23 06:14 12/29/23 06:14 12/28/23 12/29/23 09:36 06:14 WBC 12.3 H RBC 4.33 Hgb 11.4 L Hct 36.1 L MCV 83.4 MCH 26.3 MCHC 31.6 L RDW 15.2 H Plt Count 296 MPV 9.7 Immature Gran % (Auto) 0.3 Neut % (Auto) 75.0 H Lymph % (Auto) 13.9 L [place] % (Auto) 10.4 H Eos % (Auto) 0.1 Baso % (Auto) 0.3 Lymph # (Auto) 1.71 [place] # (Auto) 1.3 H Eos # (Auto) 0.0 Baso # (Auto) 0.0 Abs Immat Gran (auto) 0.04 H Absolute Neuts (auto) 9.2 H Absolute Nucleated RBC 0.000 Nucleated RBC % 0.0 Sodium 136 L Potassium 4.0 Chloride 105 Carbon Dioxide 26 Anion Gap 5 BUN 19 H Creatinine 1.10 H Estim Creat Clear Calc 41 Estimated GFR 49 L Glucose 111 H POC Capillary Glucose 141 H Calcium 9.6 Post-procedural complaints: none Patient Feedback: Patient satisfied with anesthetic care.
[2023-12-29] MEDS: ATORVASTATIN 10 MG TABLET PO (08:01)
[2023-12-29] MEDS: LOSARTAN POTASSIUM 50 MG TABLET 100 MG PO (08:01)
[2023-12-29] MEDS: ASPIRIN 81 MG ENTERIC TABLET PO ×2 (08:01→16:48)
[2023-12-29] MEDS: METOPROLOL SUCCINATE EXT REL 100 MG TABCR PO (08:02)
--- NOTE | 2023-12-29 09:13 | PM.PNORT ---
Progress Note: A&P Assessment and Plan (1) Status post total hip replacement, right: Code(s): Z96.641 - Presence of right artificial hip joint Status: Acute (2) Postoperative confusion: Code(s): R41.0 - Disorientation, unspecified Status: Acute Plan Postop day 1: Right total hip arthroplasty. Patient tolerated procedure well. She did have some post operative confusion. She was hallucinating yesterday. Improving slightly. She did not know what day it was today. She recently had a heart attack and had a defibrillator placed. Had post op confusion at that time as well. Will consult the hospitalist. Will likely require another night stay. Will limit narcotics. She is not having any pain at this time. No numbness or tingling. Spoke with patient's who is concerned about her returning home if she is still confused. Will continue to follow. Subjective Subjective Date/Time Seen: 12/29/23 09:13 Interval history: Patient resting comfortably in a chair. She states it is 2-3 days after surgery. She knows she is in the hospital, the year and the month. Did not remember if it was wednesday or . No pain. No other complaints. Review of Systems Review of Systems: All systems reviewed & are unremarkable except as noted in HPI and below Exam Narrative: 73-year-old normal weight female. Resting comfortably in chair. Alert and oriented to place, year, month, self. Not day. No acute distress. Wearing compression socks bilaterally. Dressing intact with no drainage. Mild swelling. No ecchymosis. No erythema. No hematoma. No warmth. Range of motion limited due to pain. Calf nontender. Neurologic status intact. No varicosities. Distal pulses palpable. Light touch sensation intact. Good capillary refill. Objective Data Vital Signs Vital Signs: Vital Signs - 24 hr 12/28/23 09:15 12/28/23 09:30 12/28/23 09:45 Temperature 97.1 F L Pulse Rate 78 70 68 Respiratory Rate 15 15 15 Blood Pressure 166/79 H 167/90 H 158/95 H Pulse Oximetry 100 100 95 Oxygen Delivery Simple Face Mask Simple Face Mask Room Air Oxygen Flow Rate 8 8 12/28/23 10:00 12/28/23 10:15 12/28/23 10:30 Temperature Pulse Rate 67 69 65 Respiratory Rate 14 19 17 Blood Pressure 142/99 H 158/83 H 166/83 H Pulse Oximetry 95 96 97 Oxygen Delivery Room Air Room Air Room Air Oxygen Flow Rate 12/28/23 10:45 12/28/23 13:49 12/28/23 11:00 Temperature 97.7 F Pulse Rate 63 63 Respiratory Rate 18 18 Blood Pressure 156/77 H 153/54 H Pulse Oximetry 94 93 Oxygen Delivery Room Air Room Air Oxygen Flow Rate 12/28/23 11:15 12/28/23 11:45 12/28/23 12:45 Temperature 97.6 F 97.9 F 98.0 F Pulse Rate 61 62 65 Respiratory Rate 20 20 20 Blood Pressure 147/74 H 153/73 H 122/61 Pulse Oximetry 93 95 94 Oxygen Delivery Oxygen Flow Rate 12/28/23 16:38 12/28/23 20:38 12/29/23 04:38 Temperature 97.6 F 98.5 F 97.8 F Pulse Rate 66 75 68 Respiratory Rate 18 18 18 Blood Pressure 133/70 175/80 H 148/75 H Pulse Oximetry 97 99 98 Oxygen Delivery Oxygen Flow Rate 12/29/23 08:02 12/29/23 08:38 Temperature 98.1 F Pulse Rate 80 70 Respiratory Rate 20 Blood Pressure 162/76 H Pulse Oximetry 99 Oxygen Delivery Oxygen Flow Rate Intake/Output Intake/Output: Intake & Output 12/26/23 12/27/23 12/28/23 12/29/23 23:59 23:59 23:59 23:59 Intake Total 2520 980 Balance 2520 980 Meds/Results Medications: Active Medications Generic Name Dose Route Start Last Admin Trade Name Mau PRN Reason Stop Dose Admin Acetaminophen 1,000 mg 12/28/23 10:53 12/29/23 05:32 Acetaminophen 500 Mg Tablet PO 1,000 mg Q6H SIMNO Administration Aspirin 81 mg 12/28/23 17:00 12/29/23 08:01 Aspirin 81 Mg Enteric Tablet PO 81 mg BID SIMON Administration Atorvastatin Calcium 10 mg 12/29/23 09:00 12/29/23 08:01 Atorvastatin 10 Mg Tablet PO 10 mg DAILY SIMON Administration C
--- NOTE | 2023-12-29 15:20 | WPDCN ---
Assessment and Plan Assessment and plan (1) Degenerative joint disease of right hip: Qualifiers: Osteoarthritis type: primary Qualified Code(s): M16.11 - Unilateral primary osteoarthritis, right hip Code(s): M16.11 - Unilateral primary osteoarthritis, right hip Status: Acute Assessment and Plan: Postoperative day 2 status post right total hip arthroplasty. Wound care, pain control, and DVT prophylaxis deferred to Dr. Ferreira. (2) Postoperative confusion: Code(s): R41.0 - Disorientation, unspecified Status: Acute Assessment and Plan: Likely due to a combination of factors including anesthesia, pain medications (now only receiving Tylenol), and change in environment. Family members report that she was like this for nearly 30 days following her last hospitalization. Exam is nonfocal and stroke, infection, others seem less likely. Attempt to minimize disturbances, promote regular sleep-wake cycle, provide orienting stimuli, etc. (3) Hypertension: Code(s): I10 - Essential (primary) hypertension Status: Acute Assessment and Plan: Blood pressures were reviewed and they have been running in the 150s to 160 systolic, possibly related to postop pain. Continue losartan 100 mg and metoprolol 100 mg with close monitoring of blood pressures. (4) Hyperlipidemia: Code(s): E78.5 - Hyperlipidemia, unspecified Status: Acute Assessment and Plan: Continue statin and check LFTs. (5) Chronic kidney disease: Code(s): N18.9 - Chronic kidney disease, unspecified Status: Acute Assessment and Plan: Patient likely has underlying chronic kidney disease with a creatinine ranging between 0.8 and 1.30 since last fall. Plan Thank you for allowing us to participate in this patient's care. Please do not hesitate to contact us with any questions. HPI Data of Consult Date/Time: 12/29/23 14:00 Requesting Physician: Eliceo Ferreira MD Consult Narrative Reason for consult: Medical management, postoperative confusion. Narrative: This is a 73-year-old female with history of osteoarthritis, hypertension, hyperlipidemia, ventricular fibrillation arrest status post ICD implantation in July 2023, chronic kidney disease, and breast cancer whom the hospitalist service has been consulted for medical management and postoperative confusion. She has had longstanding pain in her right hip due to osteoarthritis with avascular necrosis and she elected for replacement yesterday as conservative outpatient treatment has not provided her with longstanding relief. Her surgery was performed under general anesthesia with no immediate complications documented an estimated blood loss of 300 mL. Since her surgery she has been confused and family members note that she had similar confusion with hospitalization in July 2023 at which time she was hospitalized after VFib arrest. She has no history of dementia or known lasting effects from anoxic brain injury. She has not had any fevers and denies headache, neck ache, cold and flu symptoms, chest pain, shortness of breath, nausea, vomiting, diarrhea, and dysuria. No reports of urinary retention. She is only beginning scheduled Tylenol today due to the confusion. Review of Systems Review of Systems: 12 systems were reviewed and are negative except for as per HPI. [facility] Past Medical History Medical History (Updated 12/29/23 @ 15:32 by Mara Mosquera PA-C) Breast cancer Cardiac arrest (07/2023) Chronic kidney disease Hyperlipidemia Hypertension Osteoarthritis Surgical History Surgical History (Updated 12/29/23 @ 15:27 by Mara Mosquera PA-C) History of arthroplasty of left knee (12/2020) History of x4 - 1974, 1977, 1979, 1982 History of knee surgery (1970) History of mastectomy (2001) History of mastectomy (2006) History of total replacement of left shoulder joint (10/11
[2023-12-29] MEDS: SENNA/DOCUSATE SODIUM TABLET 2 TAB PO (16:48)
[2023-12-29] MEDS: traZODone HCL 50 MG TABLET PO (22:02)
[2023-12-30 07:37] VITALS: BP 143/70; PULSE 67; RESP 16; TEMP 36.7; O2SAT 100
[2023-12-30 09:20] VITALS: BP 121/75; PULSE 70; O2SAT 100
--- NOTE | 2023-12-30 09:21 | PM.IMPN ---
Progress Note: A&P Assessment and Plan (1) Hypertension: Code(s): I10 - Essential (primary) hypertension Status: Acute (2) Hyperlipidemia: Code(s): E78.5 - Hyperlipidemia, unspecified Status: Acute (3) Postoperative confusion: Code(s): R41.0 - Disorientation, unspecified Status: Acute (4) Orthopedic aftercare for joint replacement: Code(s): Z47.1 - Aftercare following joint replacement surgery Status: Acute Plan Assessment and plan (1) Degenerative joint disease of right hip: ?Qualifiers: ?Osteoarthritis type:?primary? Qualified Code(s):?M16.11 - Unilateral primary osteoarthritis, right hip ?Code(s): M16.11 - Unilateral primary osteoarthritis, right hip ?Status:?Acute ?Assessment and Plan: Postoperative day 2 status post right total hip arthroplasty. Wound care, pain control, and DVT prophylaxis deferred to Dr. Ferreira. (2) Postoperative confusion: ?Code(s): R41.0 - Disorientation, unspecified ?Status:?Acute ?Assessment and Plan: Likely due to a combination of factors including anesthesia, pain medications (now only receiving Tylenol), and change in environment. Family members report that she was like this for nearly 30 days following her last hospitalization. Exam is nonfocal and stroke, infection, others seem less likely. Attempt to minimize disturbances, promote regular sleep-wake cycle, provide orienting stimuli, etc. (3) Hypertension: ?Code(s): I10 - Essential (primary) hypertension ?Status:?Acute ?Assessment and Plan: Blood pressures were reviewed and they have been running in the 150s to 160 systolic, possibly related to postop pain. Continue losartan 100 mg and metoprolol 100 mg with close monitoring of blood pressures. (4) Hyperlipidemia: ?Code(s): E78.5 - Hyperlipidemia, unspecified ?Status:?Acute ?Assessment and Plan: Continue statin and check LFTs. (5) Chronic kidney disease: ?Code(s): N18.9 - Chronic kidney disease, unspecified ?Status:?Acute ?Assessment and Plan: Patient likely has underlying chronic kidney disease with a creatinine ranging between 0.8 and 1.30 since last fall. Subjective Date/time seen: 12/30/23 09:21 Exam Narrative: General: Well-developed, nontoxic-appearing female sitting up in bed. Weight: 66.5 kg. BMI: 23.0. HEENT: Normocephalic, atraumatic. PERRL, EOMI. Sclera anicteric. Oral mucosa moist. Neck: Supple. Respiratory: Lungs are clear to auscultation bilaterally. Cardiovascular: Regular rate and rhythm with S1-S2. Gastrointestinal: Abdomen is soft, nontender, and nondistended with positive bowel sounds. Skin: Warm and dry. No rash or lesions on limited exam. Musculoskeletal: Right hip dressing is clean, dry, and intact. She is neurovascularly intact distal to the surgical site. Extremities: No cyanosis, clubbing, or edema. Radial and pedal pulses intact. Neurological: Alert and oriented to name and date of . She is aware that she is in the hospital. Cranial nerves 2-12 are grossly intact. Speech is clear and fluent. At time she is able to hold a good conversation but she will then suddenly do something strange such as talk about her sitting over the there were eating dinner or constantly removing and replacing her bed sheet. No facial asymmetry. No gross focal deficits to casual conversation. Psychiatric: Confused but mostly cooperative. At times difficult to redirect. Objective Data Vital Signs Vital Signs: Vital Signs - 24 hr 12/29/23 12:38 12/29/23 15:51 12/29/23 20:26 Temperature 98.2 F 98.4 F 99 F Pulse Rate 61 61 58 L Respiratory Rate 18 18 16 Blood Pressure 138/77 119/68 160/78 H Pulse Oximetry 100 97 96 12/30/23 07:37 Temperature 98.0 F Pulse Rate 67 Respiratory Rate 16 Blood Pressure 143/70 H Pulse Oximetry 100 Intake/Output Intake/Output: Intake & Output 0
[2023-12-30] MEDS: LOSARTAN POTASSIUM 50 MG TABLET 100 MG PO (09:23)
[2023-12-30 09:24] VITALS: PULSE 70
[2023-12-30] MEDS: ASPIRIN 81 MG ENTERIC TABLET PO (09:24)
[2023-12-30] MEDS: ATORVASTATIN 10 MG TABLET PO (09:24)
[2023-12-30] MEDS: METOPROLOL SUCCINATE EXT REL 100 MG TABCR PO (09:24)
[2023-12-30 14:06] VITALS: BP 132/60; PULSE 61; RESP 16; TEMP 37.1; O2SAT 99
--- NOTE | 2023-12-30 14:46 | PM.DS ---
DS: Admitting Diagnosis Discharge Date 12/30/23 Admitting Diagnosis Hip arthritis. DS: Discharge Diagnosis Discharge Diagnosis (1) Status post total hip replacement, right: Code(s): Z96.641 - Presence of right artificial hip joint Status: Acute (2) Postoperative confusion: Code(s): R41.0 - Disorientation, unspecified Status: Acute Plan Postop day 2: Total hip arthroplasty. Patient tolerated procedure well. Does have some postoperative confusion. She has had this in the past with her recent cardiac arrest. She is very sensitive to medications, even tylenol. Pain manageable without pain medication. Will limit pain medications. No numbness or tingling. Patients mental status has improved today. She is alert and oriented. Has intermittent hallucinations. Spoke with the patient's who will be caring for her. He is comfortable with taking care of her even if she gets confused. Discussed the postoperative care. He shows good understanding. We had a lengthy discussion regarding postoperative wound care, limitations, expectations, and exercises. Patient shows good understanding. Patient has had initial physical therapy and is tolerating it well. DVT prophylaxis: 81 mg baby aspirin b.i.d. for 14 days. Short frequent walks. Pain medication: Will limit pain medication unless absolutely needed due to mental status. Patient has followup appointment with Dr. Ferreira in 3 weeks DS: Summary Hospital Course Hospital Course: Patient had some significant postoperative confusion and delirium. This is improving today. Will limit any pain medications. Time Spent with Patient Time attestation: Total time spent providing and/or coordinating discharge services: Exam Narrative: 73-year-old normal weight female. Resting comfortably in chair. Alert and oriented x4. No acute distress. Wearing compression socks bilaterally. Dressing intact with no drainage. Mild swelling. No ecchymosis. No erythema. No hematoma. No warmth. Range of motion limited due to pain. Calf nontender. Neurologic status intact. No varicosities. Distal pulses palpable. Light touch sensation intact. Good capillary refill. Discharge Plan Discharge Attending physician on discharge: Eliceo Ferreira Consulting providers: Miranda Jimenez; Marietta Thompson Discharging Clinician: Tabatha Lazar Anticipated Discharge Date/Time: 12/30/23 14:44 Patient Disposition: Home, Self-Care Activity: may shower Diet: as tolerated Discharge Instructions: See green instruction sheets Patient Instructions: Pain Management (DC), Total Hip Replacement (DC) Stand Alone Forms: General Discharge Information Follow-up/Referrals: Tabatha Lazar PA [Physician Import/Export Clerk] - Discharge Medications: New aspirin 81 mg tablet,delayed release (DR/EC) 81 mg PO BID 14 Days Qty: 28 0RF oxycodone-acetaminophen 5-325 mg tablet 1 - 2 tablet PO Q4-6H MDD 6 PRN (Reason: pain) Qty: 30 0RF Continued losartan 50 mg tablet 100 mg PO QAM metoprolol succinate 100 mg tablet extended release 24 hr 100 mg PO QAM pantoprazole 40 mg tablet,delayed release (DR/EC) 40 mg PO DAILY PRN (Reason: Indigestion) acetaminophen 500 mg Capsule 1,000 mg PO Q6H PRN (Reason: Pain) aspirin 81 mg tablet,delayed release (DR/EC) 81 mg PO QAM 30 Days Qty: 30 0RF atorvastatin 10 mg tablet 10 mg PO DAILY Qty: 30 0RF calcium carbonate-vitamin D3 [Os-Jeffery 500 + D3] 500 mg-5 mcg (200 unit) tablet 1 tablet PO DAILY Qty: 30 0RF Date of admission: 12/29/23 14:01 Primary Care Provider: PHYSICIAN NOT ON STAFF,NONSTAFF Admitting Provider: Eliceo Ferreira Attending physician on admission: Eliceo Ferreira Condition: Stable
== END 2023-12-30 16:35 | disposition home or self-care (01) | DRG 470 ==
LOC: ANHSURGERY 14:31 → ANH3MEDSUR 14:31
PROVIDERS: Physician Assistant Surgical; Admitting Provider Orthopaedic Surgery; Visit Provider Orthopaedic Surgery
PROC: 0SR904A Replacement of Right Hip Joint with Ceramic on Polyethylene Synthetic Substitute, Uncemented, Open Approach (ICD-10-PCS; CPT 27130; principal; 2023-12-28 07:30)
DX: M16.0 Bilateral primary osteoarthritis of hip (principal); M87.051 Idiopathic aseptic necrosis of right femur; R44.3 Hallucinations, unspecified; M17.0 Bilateral primary osteoarthritis of knee; E78.5 Hyperlipidemia, unspecified; I12.9 Hypertensive chronic kidney disease with stage 1 through stage 4 chronic kidney disease, or unspecified chronic kidney disease; N18.9 Chronic kidney disease, unspecified; Z95.810 Presence of automatic (implantable) cardiac defibrillator; Z86.74 Personal history of sudden cardiac arrest; Z96.612 Presence of left artificial shoulder joint; Z79.82 Long term (current) use of aspirin; R41.0 Disorientation, unspecified; Z85.3 Personal history of malignant neoplasm of breast
CPT/HCPCS: 36415; 73502; 80048; 82948; 85025; 86850; 86900; 86901; 97110; 97116; 97161; 97165; 97530; 97535; A9270; C1776; J0171; J1100; J1170; J1885; J2270; J2405; J2704; J2795; J3010; J3370; J7120

== ENCOUNTER 2024-02-14 09:21 | Outpatient (CLI) | payer MEDICARE, SELFPAY ==
--- NOTE | ~2024-02-14 | XR_ITS ---
AP and lateral views of the right hip Clinical history: Pain Findings: No acute fracture or dislocation is seen. Right hip arthroplasty in place, without evidence of hardware complication. Soft tissues are unremarkable. Impression: No acute abnormality. Right hip arthroplasty. Reviewed, dictated and finalized at location . Impression: No acute abnormality. Right hip arthroplasty.
== END 2024-02-14 09:22 | disposition home or self-care (01) ==
PROVIDERS: Visit Provider Orthopaedic Surgery
DX: Z47.1 Aftercare following joint replacement surgery (principal); Z96.641 Presence of right artificial hip joint
CPT/HCPCS: 73502